=== PATIENT | female | born 1980 ===

== ENCOUNTER 2024-03-11 23:30 | Emergency (ER) | payer SELFPAY ==
[2024-03-12 00:09] LABS: APPEARANCE,URINE CLOUDY (CLEAR); BILIRUBIN,URINE NEGATIVE (NEGATIVE); COLOR,URINE BROWN (YELLOW); GLUCOSE,URINE NEGATIVE (NEGATIVE); KETONES,URINE NEGATIVE (NEGATIVE); LEUKOCYTE ESTERASE,URINE NEGATIVE (NEGATIVE); NITRITE,URINE POSITIVE (NEGATIVE); OCCULT BLOOD,URINE LARGE (NEGATIVE); PH,URINE 8.5 (5.0-8.0); PROTEIN,URINE 100 mg/dL (NEGATIVE)
[2024-03-12 00:14] LABS: BASOPHILS ABSOLUTE AUTO 0.03 K/uL (0.00-0.10); BASOPHILS PERCENT AUTO 0.5 % (0.1-1.3); EOSINOPHILS ABSOLUTE AUTO 0.16 K/uL (0.00-0.40); EOSINOPHILS PERCENT AUTO 2.7 % (0.0-5.4); HEMATOCRIT 27.8 % (34.3-46.0); HEMOGLOBIN 9.3 g/dL (11.2-15.5); IMMATURE GRAN ABSOLUTE AUTO 0.05 K/uL (0.00-0.23); IMMATURE GRAN PERCENT AUTO 0.8 % (0.0-0.7); LYMPHOCYTES ABSOLUTE AUTO 0.59 K/uL (0.8-3.3); MEAN CORPUSCULAR HEMOGLOBIN 27.8 pg (31.6-35.5); MEAN CORPUSCULAR HGB CONC 33.5 g/dL (31.6-35.5); MONOCYTES ABSOLUTE AUTO 0.35 K/uL (0.20-0.90); MONOCYTES PERCENT AUTO 5.9 % (3.3-12.6); NEUTROPHILS ABSOLUTE AUTO 4.74 K/uL (1.0-7.6); NEUTROPHILS PERCENT AUTO 80.1 % (40.0-78.1); PLATELET COUNT,PLT 90 K/uL (130-375); RED BLOOD CELL COUNT 3.35 M/uL (3.77-5.24); WHITE BLOOD CELL COUNT,WBC 5.9 K/uL (3.2-11.0)
[2024-03-12 00:23] LABS: BLOOD UREA NITROGEN,BUN 13 mg/dL (7-18); C-REACTIVE PROTEIN 1.36 mg/dL (<0.50); CALCIUM 7.7 mg/dL (8.5-10.1); CARBON DIOXIDE,CO2 21 mmol/L (21-32); CHLORIDE,CL 105 mmol/L (100-108); CREATININE 0.7 mg/dL (0.6-1.0); ESTIMATED GFR 109 mL/min (>60); GLUCOSE RANDOM 123 mg/dL (74-106); POTASSIUM,K 3.7 mmol/L (3.6-5.2); SODIUM,NA 135 mmol/L (140-148)
[2024-03-12 00:25] LABS: ANION GAP 12.7 mmol/L (5.0-14.0)
[2024-03-12 00:32] LABS: AMORPHOUS SEDIMENT,URINE NOT SEEN; BACTERIA,URINE MANY; EPITHELIAL CELLS,URINE FEW; MUCUS,URINE NOT SEEN; RBC,URINE >100 (0-5)
[2024-03-12] MEDS: Sodium Chloride 0.9% 10 ML Syringe FLUSH PRN (00:43)
[2024-03-12] MEDS: Iopamidol 612 MG/ML 100 ML Bottle IV PRN (00:43)
[2024-03-12] MEDS: Sodium Chloride 0.9% 80 ML IV ONE (00:43)
[2024-03-12] MEDS: HYDROmorphone 0.5 MG/0.5 ML Syringe IVPUSH ONE (01:01)
[2024-03-12] MEDS: Ondansetron 4 MG/2 ML SDV IVPUSH ONE (01:01)
[2024-03-12] MEDS: Sodium Chloride 0.9% 1,000 ML IV SCH (01:01)
[2024-03-12] MEDS: cefTRIAXone 2 GM in Sodium Chloride 0.9% 50 ML IV ONE (01:39)
== END 2024-03-12 03:48 | disposition other institution (70) ==
LOC: JP.ED 23:30
DX: N39.0 Urinary tract infection, site not specified (principal); F17.210 Nicotine dependence, cigarettes, uncomplicated
CPT/HCPCS: 36415; 74177; 80048; 81001; 85025; 86140; 87040; 87086; 87088; 87186; 96361; 96365; 96375; 99285; J0696; J1170; J2405; J3490; J7030; Q9967